=== PATIENT | female | born 1955 | race Caucasian/White ===

== ENCOUNTER → 2017-11-01 09:47 | Outpatient (CLI) | payer OTHER, SELFPAY ==
--- NOTE | 2017-11-01 09:53 | MM_ITS ---
MM Dig screening mamm BI w/CAD CAD Screening COMPARISON: Digital mammograms with CAD 10/18/2016 and 10/28/2015 INDICATION: There is a history of breast cancer patient maternal aunt diagnosed after menopause. TECHNIQUE: Standard CC and MLO images were obtained. R2 CAD reviewed. FINDINGS: Moderate diffuse fibroglandular densities are seen in the central portions of both breasts. There are stable nodular densities in each breast which were noted to be cysts on previous ultrasound examination. There is no new or suspicious lesion in either breast and there are no suspicious microcalcifications. There are multiple small nodes in both axilla. IMPRESSION: Stable exam no suspicious lesion seen BI-RADS Category: 2 Benign Finding(s) RECOMMENDED FOLLOW-UP: 1YR - 1 YEAR FOLLOW-UP (A letter has been sent to the patient regarding results of the study.)
== END ==
PROVIDERS: PCP Internal Medicine; Visit Provider Internal Medicine
DX: Z12.31 Encounter for screening mammogram for malignant neoplasm of breast (principal)
CPT/HCPCS: 77067

== ENCOUNTER → 2018-12-24 16:25 | Outpatient (CLI) | payer OTHER, BC, SELFPAY ==
--- NOTE | 2018-12-24 16:27 | MM_ITS ---
PROCEDURE: MM DIG SCREENING MAMM BI W/CAD CLINICAL INDICATION: SCREENING There is is breast cancer patient's maternal aunt. COMPARISON: [id number] DIG MAMM-DX UNI ADD VIEWS-RT from 11/08/2015 [facility] DIG MAMM-SCREEN MAT W/CAD from 10/18/2016 [facility] MM Dig screening mamm BI w/CAD from 11/01/2017 TECHNIQUE: Standard CC and MLO images were obtained. R2 CAD reviewed. FINDINGS: Moderate fibroglandular densities are seen in the central portions of both breasts. There are 2 small stable asymmetric densities upper-outer quadrant left breast and a single small asymmetric nodular density upper outer quadrant right breast. There is no suspicious lesion and no suspicious microcalcifications. There is benign-appearing calcification in each breast. IMPRESSION: Fibrofatty parenchyma with no suspicious lesions seen BI-RAD Category: 2 Benign Finding(s) FOLLOW-UP: 1YR 1 Year Follow-up (A letter has been sent to the patient regarding results of the study.) Dictated by: Dr. Freddy Crowley MD 12/29/2018 10:[address] Freddy Crowley MD in [place] 12/29/2018 10:49
== END ==
PROVIDERS: PCP Internal Medicine; Visit Provider Internal Medicine
DX: Z12.31 Encounter for screening mammogram for malignant neoplasm of breast (principal)
CPT/HCPCS: 77067

== ENCOUNTER 2019-09-08 15:17 | Emergency (ER) | payer OTHER, BC, SELFPAY ==
--- NOTE | 2019-09-08 15:13 | ECG_ITS ---
APPROVED REPORT Exam: Resting ECG HR:91 bpm ECG Measurements Heart Rate 91 AXES OH 130 P 69 QRSd 90 QRS 56 QT 346 T 63 QTc 425 <Conclusion> Sinus rhythm Incomplete RBBB Otherwise normal ECG Electronically signed by : Dale Leung, 09/09/2019 08:39:43
[2019-09-08 15:17] VITALS: BP 146/62; PULSE 90; RESP 18; TEMP 36.7; O2SAT 96; BMI 26.9
--- NOTE | 2019-09-08 15:18 | CT_ITS ---
PROCEDURE: CT HEAD/BRAIN WO CON Patient Age:64Y CLINICAL INDICATION: Fall, Dizzy COMPARISON: No exams were available for comparison TECHNIQUE: No IV contrast utilized Standard axial images were obtained. All CT scans at the facility use one or more dose reduction, viz: automated exposure control, ma/kV adjustment per patient size (including targeted exams where dose is matched to indication, i.e. head), or iterative reconstruction technique. . FINDINGS: No acute intracranial findings. No intracranial hemorrhage.. No territorial infarct evident No hydrocephalus.The ventricles and basal cisterns appear clear and satisfactory. No mass or midline shift nor mass effect. No subdural or extra-axial fluid collection is evident. Posterior fossa unremarkable. IAC's symmetric. Middle ear clear, unremarkable. Nomastoid effusions. Mastoid air cells are well developed and clear. Skull intact- calvarium unremarkable appearance. . Nosinus air-fluid level. Visualized portions of the paranasal sinuses and orbits unremarkable. IMPRESSION: No acute intracranial findings No hemorrhage. No infarct or territorial infarct evident Dictated by: Matt Leach MD 09/08/2019 15:37 Electronically signed by Matt Leach MD in [place] 09/08/2019 15:37
--- NOTE | 2019-09-08 15:19 | XR_ITS ---
PROCEDURE: XR CHEST 2V Patient Age:64Y CLINICAL HISTORY: Fall dizzy weakness COMPARISON: CXR CHEST(2 VIEWS-NOT PORTABLE) from 03/14/2015 CXR CHEST(2 VIEWS-NOT PORTABLE[facility] [facility] from 03/17/2015 CHEST 1 VIEW PA/AP PORTABLE from 04/06/2015 FINDINGS: Upright AP chest with lateral CXR performed. Rather lordotic projection on the AP view.. Reviewed. Lungs are clear with nothing definitely acute . Overlapping breast density bilaterally of noted but no acute findings heart, jose and mediastinal structures satisfactory.. No pleural effusions no pneumothorax. A few scattered small calcified granulomas lung muñoz none measuring over 6 mm size chest wall in T-spine satisfactory. IMPRESSION: Stable chest nothing definitely acute. Dictated by: Matt Leach MD 09/08/2019 17:00 Electronically signed by Matt Leach MD in [place] 09/08/2019 17:00
[2019-09-08 16:00] LABS: Basophils # 0.1 K/mm3 (0-0.2); Basophils % 0.9 % (0.1-2.0); Eosinophils # 0.1 K/mm3 (0.0-0.4); Eosinophils % 0.6 % (0.1-12.0); Hematocrit 40.9 % (37.0-47.0); Hemoglobin 13.7 g/dL (12.2-16.2); Lymphocytes # 1.7 K/mm3 (0.7-4.5); Lymphocytes % 15.8 % (10-50); Mean Corpuscular HGB Conc 33.4 g/dL (31.8-35.4); Mean Corpuscular Hemoglobin 30.1 pg (27.0-31.2); Mean Corpuscular Volume 90.1 fl (81-99); Mean Platelet Volume 9.8 fl (7.4-10.4); Monocytes # 0.6 K/mm3 (0.1-1.0); Monocytes % 5.4 % (1.7-9.3); Neutrophils # 8.4 K/mm3 (1.8-7.8); Neutrophils % 77.2 % (37.0-80.0); Platelet Count 244 K/mm3 (142-424); Red Blood Count 4.54 M/mm3 (4.20-5.40); Red Cell Distribution Width 13.4 % (11.5-17.5); White Blood Count 10.9 K/mm3 (4.8-10.8)
[2019-09-08 16:08] LABS: Alanine Aminotransferase 32 U/L (12-78); Albumin Level 4.6 g/dl (3.5-5.0); Albumin/Globulin Ratio 1.4 (1.1-1.8); Alkaline Phosphatase 91 U/L (38-126); Anion Gap 8.1 mEq/L (5-15); Aspartate Amino Transferase 47 U/L (14-36); Bilirubin,Total 0.6 mg/dl (0.2-1.3); Blood Urea Nitrogen 15 mg/dl (7-17); Carbon Dioxide 28 mmol/L (22.0-30.0); Chloride 105 mmol/L (98-107); Creatinine Clearance Estimated 62 mL/min (50-200); Estimated Glomerular Filt Rate 72 ml/min (>60); GFR (African American) 87 ML/MIN (>60); Globulin 3.4 g/dL (1.3-3.2); Glucose 103 mg/dl (74-100); Potassium 4.1 mmoL/L (3.5-5.1); Sodium 137 mmol/L (136-145)
[2019-09-08 16:29] LABS: Troponin I < 0.01 ng/ml (0.00-0.034)
--- NOTE | 2019-09-08 16:57 | HMH.EDFALL ---
ED Disposition Clinical Impression: Syncope Disposition: Home, Self-Care Condition on Discharge: Good Instructions: How to Prevent Falls Referrals: Provider,Referral, [Primary Care Provider] - - Critical Care Critical Care Time: No Attestation: On 09/08/19, the high probability of a clinically significant, sudden or life threatening deterioration of the following system(s) required my full and direct attention, intervention and personal management. The time I documented below is in addition to time spent performing reported procedures but includes the following listed in this critical care notation. Medical Decision Making - Medical Records Medical records reviewed: Yes: I reviewed the patient's medical records. - Alonso Inquiry Pt receiving controlled substance: No Vital Signs: 09/08/19 15:17 Temperature 98.0 F Temperature Source Oral Pulse Rate [Right Radial] 90 Respiratory Rate 18 Blood Pressure [Right Arm] 146/62 H Blood Pressure Mean [Right Arm] 90 Blood Pressure Source [Right Arm] Automatic Cuff Blood Pressure Position [Right Arm] Sitting 02 Sat by Pulse Oximetry 96 Oxygen Delivery Method Room Air - Lab Data Lab results reviewed: Yes: I reviewed the patient's lab results. Lab Results 09/08/19 15:52: WBC 10.9 H, RBC 4.54, Hgb 13.7, Hct 40.9, MCV 90.1, MCH 30.1, MCHC 33.4, RDW 13.4, Plt Count 244, MPV 9.8, Neut % (Auto) 77.2, Lymph % (Auto) 15.8, [place] % (Auto) 5.4, Eos % (Auto) 0.6, Baso % (Auto) 0.9, Neut # (Auto) 8.4 H, Lymph # (Auto) 1.7, [place] # (Auto) 0.6, Eos # (Auto) 0.1, Baso # (Auto) 0.1 09/08/19 15:52: Sodium 137, Potassium 4.1, Chloride 105, Carbon Dioxide 28, Anion Gap 8.1, BUN 15, Creatinine 0.80, Estimated Creat Clear 62, Estimated GFR 72, Est GFR ( Amer) 87, Glucose 103 H, Calcium 10.0, Total Bilirubin 0.6, AST 47 H, ALT 32, Alkaline Phosphatase 91, Troponin I < 0.01, Total Protein 8.0, Albumin 4.6, Globulin 3.4 H, Albumin/Globulin Ratio 1.4 Result diagrams: 09/08/19 15:52 09/08/19 15:52 Orders (Tests/Meds): ORDERS Category Date Time Status Chest XR 2 view (NOT portable) [XR chest 2V] Stat Exams 09/08/19 15:19 Taken Troponin I Q3H Lab 09/08/19 18:30 Ordered Troponin I Q3H Lab 09/08/19 21:30 Ordered - CT Data CT Scan: Head Time Received: 17:[address] Reviewed: Yes: I have viewed the radiologist's interpretation Preliminary Findings: Normal/NAD - ECG Data Tracing #1 I reviewed this ECG and interpreted as documented below: Normal Sinus Rhythm: Yes Fall HPI - General Chief Complaint: Fall Stated Complaint: Fall Time Seen by Provider: 09/08/19 16:58 Mode of Arrival: EMS Source of Information: Patient Limitations: No Limitations Description of Symptoms (Recalled from ER Triage Doc. by RN): PT BROUGHT TO ED VIA EMS FOR C/O FALL AFTER SHE BECOME DIZZY. PT STATES THAT SHE HAD A BRIEF PERIOD OF DIZZINESS AND ALTERED SENSATION IN HER LEFT ARM THAT LASTED APPROX 5-10 MINS. PT STATES THAT ALL SX HAVE SUBSIDED AT THIS TIME BESIDES A LIGHT DE LEON. - History of Present Illness HPI Narrative: 64-year-old female was out at a cookout and she became really hot and she felt lightheaded and sat down. She comes in complaining of maybe some left-sided arm numbness with no chest pain. Otherwise patient does not have any formal complaints. Vital signs are stable. MD complaint: other Onset (ago): hour(s) Fall from: standing Fall witnessed: yes, by family Place fall occurred: home Loss of consciousness: none Prolonged down time: no Symptoms prior to fall: lightheadedness Location of injury - extremities: Left: shoulder Severity: mild Severity scale (1-10): 2 - Related Data Allergies Allergy/AdvReac Type Severity Reaction Status Date / Time No Known Allergies Allergy Unverified 04/03/17 15:18 [facility] History - Hepatitis A Screen Drug use history?: No High risk sexual behaviors?: No History of sexually transmitted infection?: No Currently empl
[2019-09-08 17:59] VITALS: BP 146/62; PULSE 90; RESP 18; TEMP 36.7; O2SAT 96
== END 2019-09-08 18:00 | disposition home or self-care (01) ==
PROVIDERS: Emergency Provider Family Medicine
DX: R55 Syncope and collapse (principal)
CPT/HCPCS: 70450; 71046; 80053; 84484; 85025; 93005; 99283

== ENCOUNTER 2023-08-16 10:02 | Emergency (ER) | payer MEDICARE, SELFPAY ==
[2023-08-16] VITALS (10 sets, daily range): BP systolic 113–150; BP diastolic 55–94; PULSE 68–98; RESP 15–18; TEMP 36.7–37; O2SAT 92–96; BMI 27.3
--- NOTE | 2023-08-16 10:20 | CT_ITS ---
FINAL REPORT TECHNIQUE: After the administration of intravenous contrast, axial images were obtained through the abdomen and pelvis by computed tomography. The study was performed with techniques to keep radiation dose as low as reasonably achievable, (ALARA). Individual dose reduction techniques using automated exposure control or adjustment of mA and/or kV according to the patient's size were employed. CLINICAL HISTORY: recent L ureter stent, L flank pain COMPARISON: None FINDINGS: Abdomen: No acute density is seen within the lung bases. There is mild left hydronephrosis with a left internal ureteral stent. There is a dominant left renal pelvic stone measuring 11 mm. The right kidney is unremarkable. The remaining solid abdominal organs are unremarkable. The gallbladder is normal. No bowel obstruction is present. There is no free air. No fluid collection is seen. There is no adenopathy. Pelvis: The appendix is normal. No bowel wall thickening is present. Left internal ureteral stent is in good position within the bladder. There are no obvious stones along the distal stent. The uterus and ovaries are unremarkable. There is no free fluid. No pelvic mass is seen. IMPRESSION: Left internal ureteral stent with mild left hydronephrosis and dominant left renal stone. Reviewed, Interpreted and Dictated by Arian Maher MD Transcribed by Amanda Cnao Authenticated and [facility]
--- NOTE | 2023-08-16 10:40 | ED_ITS ---
Discharge Plan Disposition Patient Disposition: Home, Self-Care Prescriptions Prescriptions: New cefdinir 300 mg capsule 300 mg PO BID 10 Days Qty: 20 0RF Referrals Follow up/Referrals: Provider,Referral, MD [Primary Care Provider] - See instructions Activity Restrictions/Add. Instructions Additional Instructions/Restrictions: At this time it was felt you are safe to be discharged home. If new or worsening symptoms please do not hesitate to return the emergency department. Please take your antibiotics as prescribed continue to follow-up with urology on the sixth as discussed. Clinical Impressions Clinical Impression: Abdominal pain, Acute UTI Instructions Patient Instructions: DI for Urinary Tract Infection (UTI), DI for Urinary Tract Infection in Children Discharge ED Provider: Mahendra Mccloud General Adult HPI General Chief complaint: Urogenital-Female Stated complaint: sent by [facility] dept to check stint in L Leg Time Seen by Provider: 08/16/23 10:14 Mode of Arrival: Ambulatory Source of Information: Patient Limitations: No Limitations Description of Symptoms (Recalled from ER Triage Doc. by RN): stent due to kidney stone placed on sunday. pt has been in increasing pain,vomiting History of Present Illness HPI narrative: Patient is a 68-year-old female with past medical history of kidney stones on the left that recent got a stent placed on Sunday who presents emergency department for intermittent pain. Yesterday she had severe left-sided flank pain, she contacted the physician on-call who recommended she be evaluated. She has had vomiting and due to intermittent persistent symptoms she presents here for continued evaluation. She has been compliant with her tamsulosin and phenazopyridine. Her pain today is much better than yesterday. Related Data Previous Rx's Medication Instructions Recorded cefdinir 300 mg capsule 300 mg PO BID 10 days #20 caps 08/16/23 Allergies Allergy/AdvReac Type Severity Reaction Status Date / Time No Known Allergies Allergy Unverified 04/03/17 15:18 [facility] Disclaimer: The information contained in this section may have been updated after the patient was seen, as this information can be updated by other users. Social History Smoking Status: Never smoker alcohol intake: never current occupational status: retired Travel in the last 8 weeks: None ROS Obtained: Yes Systems reviewed as appropriate & no additional complaints except as documented Physical Exam General General appearance: alert and in no apparent distress Head Head exam: atraumatic and normocephalic Eye Eye exam: Present PERRL and EOMI ENT ENT exam: Present mucous membranes moist Neck Neck exam: Present normal inspection Chest Chest inspection: Present normal inspection and symmetric chest wall rise Respiratory Respiratory exam: Present normal lung sounds bilaterally; Absent respiratory distress Cardiovascular Cardiovascular exam: Present regular rate and normal rhythm Abdominal Exam Abdominal exam: Present soft; Absent tenderness Extremities Exam Extremities exam: Present normal inspection Neurological Exam Neurological exam: Present alert Psychiatric Psychiatric exam: Present normal affect Skin Skin exam: Present warm and dry Medical Decision Making Alonso Inquiry Pt receiving controlled substance: No Vital Signs: 08/16/23 10:04 08/16/23 10:31 08/16/23 11:01 Temperature 98.6 F Temperature Source Oral Pulse Rate 98 H 89 Pulse Rate [Left] 95 H Respiratory Rate 18 Blood Pressure 136/94 H 124/63 Blood Pressure [Left Arm] 150/79 H Blood Pressure Mean Blood Pressure Mean [Left Arm] 102 02 Sat by Pulse Oximetry 96 95 94 L Oxygen Delivery Method Room Air Room Air Room Air 08/16/23 11:30 08/16/23 12:00 08/16/23 12:45 Temperature Temperature Source Pulse Rate 80 78 78 Pulse Rate [Left] Respiratory Rate Blood Pressure 127/71 113/67 Blood Pressure [Left Arm] Blood Pressure Mean 88 Blood Pressure Mean [Left Arm] 02 Sat by Pulse Oximetry 93 L 94 L 93 L Oxygen Delivery Method Room Air 08/16/23 13:00 Temperature Temperature Source Pulse Rate 81 Pulse Rate [Left] Respiratory Rate Blood Pressure 121/55 L Blood Pressure [Left Arm] Blood Pressure Mean Blood Pressure Mean [Left Arm] 02 Sat by Pulse Oximetry 93 L Oxygen Delivery Method Room Air Lab Data Lab Results 08/16/23 10:55: WBC 9.2, RBC 4.81, Hgb 14.2, Hct 43.9, MCV 91.1, MCH 29.4, MCHC 32.3, RDW 13.7, Plt Count 233, MPV 10.3, Neut % (Auto) 68.6, Lymph % (Auto) 23.1, [place] % (Auto) 6.0, Eos % (Auto) 1.3, Baso % (Auto) 1.0, Neut # (Auto) 6.3, Lymph # (Auto) 2.1, [place] # (Auto) 0.6, Eos # (Auto) 0.1, Baso # (Auto) 0.1, Sodium 140, Potassium 3.7, Chloride 106, Carbon Dioxide 29, Anion Gap 8.7, BUN 15, Creatinine 0.50 L, Estimated Creat Clear 59, Estimated GFR 123, Est GFR ( Amer) 148, Glucose 111 H, Calcium 9.4, Total Bilirubin 0.8, AST 34, ALT 31, Alkaline Phosphatase 81, Total Protein 7.0, Albumin 4.2, Globulin 2.8, Albumin/Globulin Ratio 1.5 08/16/23 12:00: Urine Color Dark yellow, Urine Appearance Cloudy, Urine pH 6.5, Ur Specific [place] 1.015, Urine Protein 2+, Urine Glucose (UA) Negative, Urine Ketones Negative, Urine Blood 3+, Urine Nitrate Positive, Urine Bilirubin 1+ A, Urine Urobilinogen 1.0, Ur Leukocyte Esterase 2+ A, Urine RBC Tntc, Urine WBC 5- 10, Ur Squamous Epith Cells Occasional, Urine Bacteria Trace 08/16/23 10:55 08/16/23 10:55 Orders (Tests/Meds): ED MEDICATIONS Discontinued Medications Generic Name Dose Route Start Last Admin Trade Name Freq PRN Reason Stop Dose Admin Acetaminophen 1,000 mg 08/16/23 10:44 08/16/23 11:00 Acetaminophen 500mg Tab PO 08/16/23 10:45 1,000 mg ONCE ONE Administration Lactated Ringer's 1,000 mls @ 999 mls/hr 08/16/23 10:44 08/16/23 11:00 Lactated Ringer's 1000 Ml Bag IV 08/16/23 11:44 999 mls/hr .Q1H1M ONE Administration Iopamidol 75 ml 08/16/23 11:52 08/16/23 11:53 Iopamidol-370 (76%);100ml Bottle IV 08/16/23 11:53 75 ml ONCE ONE Administration Ketorolac Tromethamine 30 mg 08/16/23 10:44 08/16/23 11:01 Ketorolac 30mg/Ml Vial IV 08/16/23 10:45 30 mg ONCE ONE Administration Ondansetron HCl 4 mg 08/16/23 10:44 08/16/23 11:00 Ondansetron 4mg/2ml Vial IV 08/16/23 10:45 4 mg ONCE ONE Administration Sodium Chloride 10 ml 08/16/23 11:52 08/16/23 11:53 Sodium Chloride 0.9% 10ml Syr (Rad Only) IV 08/16/23 11:53 10 ml ONCE ONE Administration ORDERS Category Date Time Status CT abdomen pelvis w con Stat Cat Scan 08/16/23 10:20 Completed CBC w/Auto Diff [Complete Blood Count Auto Diff] Stat Lab 08/16/23 10:55 Completed CMP [Comprehensive Metabolic Panel] Stat Lab 08/16/23 10:55 Completed UA [Urinalysis and Microscopic] Stat Lab 08/16/23 12:00 Completed Urine Culture Stat Micro 08/16/23 12:00 Received Medical Decision Narrative: In summary patient is a 68-year-old female past medical history described above presents emergency department for evaluation of intermittent pain in the setting of kidney stone status post recent stent placement pending lithotripsy in the coming weeks. Patient is hemodynamically stable nontoxic-appearing upon arrival, afebrile. Differential diagnosis includes stone migration, ureter trauma, stent migration, among others. Workup will be conducted with hematologic labs, CT abdomen pelvis IV contrast, urinalysis. Initial interventions include Tylenol, Toradol, Zofran, crystalloid bolus. Workup reviewed by me, hematologic labs are nonactionable, no MILIND or critical electrolyte abnormality, no significant leukocytosis, patient is nitrite positive with leukocyturia and trace bacteria nitrite positive however on phenazopyridine. Given recent instrumentation patient will be discharged with a course of cefdinir for possible urinary tract infection. CT imaging of the abdomen pelvis shows left internal ureteral stent with mild left hydronephrosis and dominant left renal stone. For this there is no acute intervention that is warranted. Upon repeat evaluation patient had acceptable level of pain and is appropriate for outpatient management at this time. Critical Care Critical Care Time Critical Care Time: No
--- NOTE | 2023-08-16 10:59 | PC.NURSE ---
ROUNDED ON PT NO NEEDS PENNIE THIS TIME,CALL LIGHT IN REACH
[2023-08-16] MEDS: ACETAMINOPHEN 500MG TAB 1000 MG PO (11:00)
[2023-08-16] MEDS: ONDANSETRON 4MG/2ML VIAL 4 MG IV (11:00)
[2023-08-16] MEDS: LACTATED RINGERS 1000ML 1,000 ML 999 ML IV (11:00)
[2023-08-16] MEDS: KETOROLAC 30MG/ML VIAL 30 MG IV (11:01)
[2023-08-16 11:12] LABS: Chloride 106 mmol/L (98-107); Potassium 3.7 mmoL/L (3.5-5.1); Sodium 140 mmol/L (136-145)
[2023-08-16 11:14] LABS: Basophils # 0.1 K/mm3 (0-0.2); Eosinophils # 0.1 K/mm3 (0.0-0.4); Eosinophils % 1.3 % (0.1-12.0); Hematocrit 43.9 % (37.0-47.0); Hemoglobin 14.2 g/dL (12.2-16.2); Lymphocytes # 2.1 K/mm3 (0.7-4.5); Lymphocytes % 23.1 % (10-50); Mean Corpuscular HGB Conc 32.3 g/dL (31.8-35.4); Mean Corpuscular Hemoglobin 29.4 pg (27.0-31.2); Mean Corpuscular Volume 91.1 fl (81-99); Mean Platelet Volume 10.3 fl (7.4-10.4); Monocytes # 0.6 K/mm3 (0.1-1.0); Neutrophils # 6.3 K/mm3 (1.8-7.8); Neutrophils % 68.6 % (37.0-80.0); Platelet Count 233 K/mm3 (142-424); Red Blood Count 4.81 M/mm3 (4.20-5.40); Red Cell Distribution Width 13.7 % (11.5-17.5); White Blood Count 9.2 K/mm3 (4.8-10.8)
[2023-08-16 11:15] LABS: Alanine Aminotransferase 31 U/L (12-78); Albumin Level 4.2 g/dl (3.5-5.0); Albumin/Globulin Ratio 1.5 (1.1-1.8); Alkaline Phosphatase 81 U/L (38-126); Anion Gap 8.7 mEq/L (5-15); Aspartate Amino Transferase 34 U/L (14-36); Bilirubin,Total 0.8 mg/dl (0.2-1.3); Blood Urea Nitrogen 15 mg/dl (7-17); Calcium 9.4 mg/dl (8.4-10.2); Carbon Dioxide 29 mmol/L (22.0-30.0); Creatinine Clearance Estimated 59 mL/min (50-200); Estimated Glomerular Filt Rate 123 ml/min (>60); GFR (African American) 148 ML/MIN (>60); Globulin 2.8 g/dL (1.3-3.2); Glucose 111 mg/dl (74-100)
[2023-08-16] MEDS: IOPAMIDOL-370 (76%);100ML BOTTLE 75 ML IV (11:53)
[2023-08-16] MEDS: SODIUM CHLORIDE 0.9% 10ML SYR (RAD ONLY) 10 ML IV (11:53)
[2023-08-16 12:03] LABS: Microscopic, Urine URINE MICROSCOPIC (MICROSCOPIC)
[2023-08-16 12:06] LABS: Appearance,Urine CLOUDY (Clear); Bilirubin,Urine 1+ (Negative); Blood, Urine 3+ (Negative); Color,Urine DARK YELLOW (Yellow); Glucose,Urine (UA) Negative (Negative); Ketones,Urine Negative (Negative); Leukocyte Esterase,Urine 2+ (Negative); Nitrate,Urine POSITIVE (Negative); PH,Urine 6.5 (5.0-8.5); Protein,Urine 2+ (Negative); Specific Gravity, Urine 1.015 (1.005-1.030)
[2023-08-16 12:20] LABS: Bacteria,Urine Trace /lpf; RBC,Urine TNTC #/hpf (0-3); Squamous Epithelial Cell,Urine Occasional #/hpf (0-5)
--- NOTE | 2023-08-16 14:04 | PC.NURSE ---
Dr. Mccloud at bedside
== END 2023-08-16 14:21 | disposition home or self-care (01) ==
PROVIDERS: Emergency Provider Emergency Medicine
DX: N39.0 Urinary tract infection, site not specified (principal); B96.29 Other Escherichia coli [E. coli] as the cause of diseases classified elsewhere; R10.32 Left lower quadrant pain; N13.39 Other hydronephrosis; N20.0 Calculus of kidney; Z96.0 Presence of urogenital implants
CPT/HCPCS: 74177; 80053; 81001; 85025; 87086; 96361; 96374; 96375; 99285; J2405; Q9967

== ENCOUNTER 2024-04-14 09:19 | Emergency (ER) | payer MEDICARE, OTHER, SELFPAY ==
[2024-04-14 09:50] VITALS: BP 166/79; PULSE 90; RESP 24; TEMP 36.9; O2SAT 92; BMI 24.4
--- NOTE | 2024-04-14 10:11 | EXP.UTC ---
Discharge Plan Disposition Patient Disposition: Home, Self-Care Condition: Good Prescriptions Prescriptions: New methylprednisolone [Medrol (Joel)] 4 mg tablets,dose pack See Rx Instructions .Route .COMPLEX 6 Days Qty: 21 0RF Rx Instructions: taper pack; doxycycline hyclate 100 mg capsule 100 mg PO BID Qty: 20 0RF guaifenesin [Mucinex] 600 mg tablet extended release 12hr 600 - 1,200 mg PO BID PRN (Reason: cough) Qty: 20 0RF Referrals Follow up/Referrals: Provider,Referral, MD [Primary Care Provider] - See instructions Activity Restrictions/Add. Instructions Additional Instructions/Restrictions: Start antibiotic today. Be sure to complete entire prescription even if feeling better Monitor temp. Tylenol every 4 hours as needed and / or ibuprofen every 6 hours as needed ( As long as your primary care physician has told you that it ok to take both. For fever/aches/pains ER if no less than 101 despite Tylenol or Motrin Humidifier/vaporizer or hot steamy shower Mucinex for your cough Be sure to drink lots of water. *Start steroid today. Helps with inflammation therefore, cough and wheezing. Follow directions on the package. Reviewed side effects. Patient reports taking them before. Follow up IMMEDIATELY for new or worsening of symptoms OR no noticeable improvement over the next 48-72 hours. 911 immediately for any life threatening symptoms such as chest pain or difficulty breathing Clinical Impressions Clinical Impression: Bronchitis, Sinusitis Instructions Patient Instructions: Acute Bronchitis, DI for Sinusitis Print Language Print Language: American Discharge ED Provider: Yolis Scott [facility] [place] HPI General Stated complaint: fever, congestion, cough Mode of Arrival: Ambulatory Source of Information: Patient Limitations: No Limitations Time Seen by Provider: 04/14/24 10:11 Description of Symptoms (Recalled from Triage Doc. by RN): PATIENT C/O COUGH WITH PHLEGM AND FEVER THAT STARTED LAST SUNDAY HEENT Symptoms (Recalled from RN notes): No Resp Symptoms (Recalled from RN notes): Yes Skin Symptoms (Recalled from RN notes): No MS Symptoms (Recalled from RN notes): No Functional Status (Recalled from RN notes): WNL History of Present Illness Provider Complaint: Patient states that she has COPD States that she has been having cough with fever, and at times coughing up some mucous States that mother tested positive for the flu yesterday and she wanted to get tested for that also States that she has had some sinus congestion and pressure and over all not feeling well so she came in to get checked Related Data Previous Rx's ?Medication ?Instructions ?Recorded doxycycline hyclate 100 mg capsule 100 mg PO BID #20 caps 04/14/24 guaifenesin 600 mg tablet, 600 - 1,200 mg (1 - 2 x 600 mg) PO 04/14/24 extended release 12 hr (Mucinex) BID PRN cough #20 tabs methylprednisolone 4 mg tablets in See Rx Instructions .Route 04/14/24 a dose pack (Medrol (Joel)) .COMPLEX 6 days #21 tabs Allergies Allergy/AdvReac Type Severity Reaction Status Date / Time No Known Allergies Allergy Verified 04/14/24 09:59 Worker's Comp Is this a Worker's Comp case?: No [facility] Disclaimer: The information contained in this section may have been updated after the patient was seen, as this information can be updated by other users. Medical History (Updated 04/14/24 @ 10:27 by Yolis Scott APRN) COPD (chronic obstructive pulmonary disease) Social History Smoking Status: Never smoker alcohol intake: never current occupational status: retired Travel in the last 8 weeks: None Have you lived/traveled outside [place] in past 30 days?: No Contact w/someone who lives/traveled outside [place] past 30 days?: No Exposure to someone with infectious disease in past 14 days?: No Do you have a fever (greater than 100.4 F or 38 C)?: No Have you tested positive for COVID-19: No Exposed to someone with COVID-19 in past 14 days?: No Do you have a sore throat?: No Do you have a cough?: Yes Do you have any weakness?: No Do you have any diarrhea?: No Are you experiencing any unusual bleeding?: No Do you have any muscle aches/pain?: No Do you have any abdominal pain?: No Are you experiencing loss of taste or smell?: No ROS Obtained: Yes All systems reviewed & no additional complaints except as documented and Yes Systems reviewed as appropriate & no additional complaints except as documented Constitutional Constitutional: Reports system reviewed and no additional complaints, except as documented, Reports as per HPI, Reports body ache, Reports chills and Reports fever(s) ENT Ears, Nose, Mouth, and Throat: Reports system reviewed and no additional complaints, except as documented, Reports as per HPI, Reports sinus pain and Reports sinus pressure Cardiovascular Cardiovascular: Reports system reviewed and no additional complaints, except as documented and Reports as per HPI Respiratory Respiratory: Reports system reviewed and no additional complaints, except as documented, Reports as per HPI, Denies shortness of breath, Reports chest congestion, Reports cough, Denies pain on inspiration, Denies pain with cough and Denies wheezing Gastrointestinal Gastrointestingal: Reports system reviewed and no additional complaints, except as documented and as per HPI Genitourinary Female Genitourinary: Reports system reviewed and no additional complaints, except as documented and Reports as per HPI Allergic/Immunologic Allergic/Immunologic: Denies wheezing Physical Exam General General appearance: alert and in no apparent distress ENT ENT exam: Present mucous membranes moist Expanded ENT Exam Nose exam: Present sinus tenderness Throat exam: Present other (PND noted) Respiratory Respiratory exam: Present normal lung sounds bilaterally; Absent respiratory distress or wheezes Cardiovascular Cardiovascular exam: Present regular rate, normal rhythm and normal heart sounds Abdominal Exam Abdominal exam: Present soft and normal bowel sounds; Absent distention or tenderness Neurological Exam Neurological exam: Present alert, oriented X3 and normal gait Medical Decision Making Medical Records Screening: Per USPSTF and CDC recommendations, given the prevalence of disease in our region, it is our hospital?s policy to screen for HIV and viral Hepatitis for all patients aged 18 and over and those with ongoing risk factors. Alonso Inquiry Pt receiving controlled substance: No Alonso was queried for this patient: No Vital Signs: 04/14/24 09:50 Temperature 98.4 F Temperature Source Oral Pulse Rate [Right Brachial] 90 Respiratory Rate 24 Blood Pressure [Right Arm] 166/79 H Blood Pressure Mean [Right Arm] 108 Blood Pressure Source [Right Arm] Automatic Cuff Blood Pressure Position [Right Arm] Sitting 02 Sat by Pulse Oximetry 92 L Oxygen Delivery Method Room Air Lab Data Lab results reviewed: Yes I reviewed the patient's lab results. Medical Decision Narrative: Discussed CXR and patient declined at this time
[2024-04-14 10:16] LABS: UTC Influenza A Antigen Negative (Negative); UTC Influenza B Antigen Negative (Negative)
[2024-04-14 10:22] VITALS: BP 166/79; PULSE 90; RESP 24; TEMP 36.9; O2SAT 92
== END 2024-04-14 10:35 | disposition home or self-care (01) ==
PROVIDERS: Emergency Provider Nurse Practitioner
DX: J32.9 Chronic sinusitis, unspecified (principal); J40 Bronchitis, not specified as acute or chronic; R50.9 Fever, unspecified; R05.9 Cough, unspecified; R09.81 Nasal congestion; M79.10 Myalgia, unspecified site
CPT/HCPCS: 87804; 99212; G0381

== ENCOUNTER 2025-04-15 10:45 | Outpatient (RCR) | payer OTHER, SELFPAY | END 2025-04-15 23:59 | disposition home or self-care (01) | LOC: PT.CARL 10:45 | PROVIDERS: Visit Provider Family Medicine | DX: M54.40 Lumbago with sciatica, unspecified side (principal) | CPT/HCPCS: 97161 ==